=== PATIENT | male | born 1950 | race Caucasian/White ===

== ENCOUNTER → 2020-02-22 | Outpatient (CLI) | payer MEDICARE, BC ==
[~2020-02-22] MED LIST: CETI10TA74 PO; MAGN71.5 PO; METF10007 PO; MULT-245 PO; OMEP40CA45 PO; PHYT100T PO; PRAV80TA2 PO; QUIN40TA16 PO; SERT100T PO; TAMS0.4C97 PO; UBID10CA5 PO; VITA1CAP PO; [UNRECOGNIZED DRUG - CODE] PO
== END ==
LOC: LAB 12:51
PROVIDERS: ATTEND Nurse Anesthetist, Certified Registered
DX: Z01.812 Encounter for preprocedural laboratory examination (principal); Z20.828 Contact with and (suspected) exposure to other viral communicable diseases; Z86.010 Personal history of colon polyps
CPT/HCPCS: U0003

== ENCOUNTER → 2020-02-25 | Day surgery (SDC) | payer MEDICARE, BC ==
[~2020-02-25] MED LIST changes: +IPRATRPIUM/ALBUTEROL 0.5/2.5MG 3 ML NEBU. NEB PRN; +IV RINGERS SOLUTION,LACTATED 1,000 ML IV SCH; +MIDAZOLAM HCL PF 2 MG/2 ML VIAL. IV ONE; +ONDANSETRON PF 4 MG/2 ML VIAL. IV PRN; +PROPOFOL 10,000 MCG/ML (20ML) VIAL IV ONE
[2020-02-25 12:44] VITALS: BP 142/74
== END | disposition home or self-care (01) ==
LOC: SURG 09:28
PROVIDERS: ATTEND Internal Medicine Gastroenterology
DX: Z12.11 Encounter for screening for malignant neoplasm of colon (principal); K57.30 Diverticulosis of large intestine without perforation or abscess without bleeding; D12.2 Benign neoplasm of ascending colon; D12.3 Benign neoplasm of transverse colon; Z79.899 Other long term (current) drug therapy; Z88.6 Allergy status to analgesic agent; Z79.84 Long term (current) use of oral hypoglycemic drugs; Z86.010 Personal history of colon polyps
CPT/HCPCS: 45385; 82947; 88305; J2704; J7120

== ENCOUNTER → 2021-02-28 | Outpatient (CLI) | payer MEDICARE, BC ==
[2020-02-25 12:44] VITALS: BP 142/74
[~2021-02-28] MED LIST changes: -IPRATRPIUM/ALBUTEROL 0.5/2.5MG 3 ML NEBU. NEB PRN; -IV RINGERS SOLUTION,LACTATED 1,000 ML IV SCH; -MIDAZOLAM HCL PF 2 MG/2 ML VIAL. IV ONE; -OMEP40CA45 PO; +OMEP40CA7 PO; -ONDANSETRON PF 4 MG/2 ML VIAL. IV PRN; -PROPOFOL 10,000 MCG/ML (20ML) VIAL IV ONE
--- NOTE | 2021-02-28 08:54 | RAD ---
Exam: Ultrasound abdomen-aorta screening for AAA. CLINICAL HISTORY: hypertension, history of smoking. Screening for AAA. COMPARISON: None available. TECHNIQUE: The abdominal aorta was examined from the diaphragm to the proximal common iliac arteries. FINDINGS: The proximal abdominal aorta is obscured due to bowel gas. The mid abdominal aorta measures 1.9 x 1.9 centimeters, previously systolic velocity 125 cm/s The distal abdominal aorta measures 1.7 x 1.6 centimeters, peak systolic velocity 92 cm/s. The right common iliac artery measures 1.2 x 0.7 centimeters in diameter, peak systolic velocity 150 cm/s. The left common iliac artery measures 1.0 x 0.8 cm in diameter, peak systolic velocity 188 cm/s. IVC is patent at the level the liver. IMPRESSION: The proximal aorta is obscured due to bowel gas. No abdominal aortic aneurysm seen in the mid or dist al abdominal aorta. Electronically signed by: Kristal Fonseca MD (02/28/2021 8:52 AM) [id number]
== END ==
LOC: US 07:47
PROVIDERS: ATTEND Family Medicine
DX: Z13.6 Encounter for screening for cardiovascular disorders (principal); I10 Essential (primary) hypertension; F17.210 Nicotine dependence, cigarettes, uncomplicated
CPT/HCPCS: 76770